=== PATIENT | female | born 1945 | race Caucasian/White ===

== ENCOUNTER 2021-07-08 11:58 | Observation (INO) | payer MEDICARE, OTHER, SELFPAY ==
[2021-07-08] VITALS (8 sets, daily range): BP systolic 110–157; BP diastolic 58–90; PULSE 83–97; RESP 14–21; TEMP 36.4–37.1; O2SAT 96–100; BMI 23.8; BMI 21.3
--- NOTE | 2021-07-08 12:19 | EDS_ITS ---
HPI History of Present Illness Chief Complaint: Seizure Informant: patient and EMS Onset/Context/Timing Onset: Today Context: Sudden Onset Timing: Intermittent Quality: Tonic-clonic Location: Generalized Worsened by: Nothing Relieved by: Nothing Narrative Narrative: Patient presents with a seizure that occurred today. Patient was having a sleep study done when she developed a generalized seizure. Patient was postictal on EMS arrival. Patient started to become more awake and alert during EMS transport. Patient states she has a history of seizures and her last seizure was in February 2019. Patient does not take any seizure medications. Patient denies any recent fevers or chills. Patient is still somewhat confused on the events of today and yesterday. Patient denies any nausea or vomiting. Patient denies any incontinence of urine or stool. Patient denies biting her tongue. [facility] Medical History (Updated 07/08/21 @ 15:[address] Trace White DO) Seizure Sleep apnea Home Medications amlodipine 07/08/21 [History Last Taken Unknown] fluoxetine mg 07/08/21 [History Last Taken Unknown] levothyroxine 88 mcg PO DAILY 07/08/21 [History Last Taken Unknown] Allergy/AdvReac Type Severity Reaction Status Date / Time No Known Allergies Allergy Verified 07/08/21 12:08 Social History Smoking Status: Never smoker ROS ROS ED Constitutional Constitutional ED: Denies chills or fever(s) Eyes Eyes: Denies blurry vision or change in vision ENT ENT ED: Denies rhinorrhea or sore throat Cardiovascular Cardiovascular: Denies chest pain or palpitations Respiratory/Chest Respiratory/Chest: Denies cough or dyspnea Gastrointestinal Gastrointestinal: Denies nausea or vomiting Genitourinary Genitourinary ED: Denies dysuria or hematuria Musculoskeletal Musculoskeletal: Denies back pain or neck pain Integumentary Denies abscess or rash Neurologic Neurologic: Denies headache(s) or weakness Allergic/Immunologic Allergic/Immunologic ED: Denies mouth swelling or urticaria EXAM Physical Exam Const Vital Signs: 07/08/21 11:58 07/08/21 13:20 07/08/21 14:44 Temperature 97.5 F L Temperature Source Oral Pulse Rate 97 93 92 Respiratory Rate 21 H 18 14 Blood Pressure 149/85 H 110/90 H 157/80 H Blood Pressure Mean 106 96 105 Pulse Ox 96 100 97 Oxygen Delivery Method Room Air Room Air Room Air Positive well nourished and well developed General Appearance ED: well developed HEENT Reports moist mucous membranes Neck supple and no JVD Resp normal respiratory effort and clear to auscultation bilaterally Cardio regular rate, regular rhythm and no murmurs GI normal to inspection, nondistended, normoactive bowel sounds and non-tender Palpation: soft Extremity normal to inspection General Extremety ED: Negative for edema or tenderness General Extremity: Negative for edema Neuro CN's II-XII intact bilaterally and no sensory deficits noted Sensorium / Orientation: alert and orientation impaired Motor Exam: strength 5/5 throughout Psych mental status grossly normal Skin no rashes or lesions noted MDM MDM MDM Narrative Medical decision making narrative: CT scan of the brain was obtained. There is no acute intracranial abnormality. This was interpreted by the radiologist and reviewed by myself. CBC was essentially within normal limits. Comprehensive metabolic profile was normal. Urinalysis does not show any evidence of urinary tract infection. Patient had no further seizure activity here in the emergency department. Patient is still confused and does not know the year. She knows that it is June and thinks it is the . Patient states she cannot tolerate any seizure medications. Patient states that is the reason she is not on any antiepileptics. Case was discussed with the hospitalist since she is still confused on the month and the year. He will admit the patient as long as the patient is okay with seeing a teleneurologist. Patient is agreeable with this. Patient was complaining of cramping in her left leg. Patient was given a dose of Valium for this. Patient will be admitted to the hospital. Patient understands and is agreeable with the plan. All questions were answered. Lab Data Attestation: I reviewed the patient's lab results. Labs: Laboratory Results - last 24 hr 07/08/21 07/08/21 07/08/21 12:39 12:39 14:55 WBC 3.7 L RBC 4.65 Hgb 14.4 Hct 42.1 MCV 90.5 MCH 31.0 MCHC 34.2 RDW Std Deviation 46.2 H RDW Coeff of [place] 13.8 Plt Count 204 MPV 10.6 Immature Gran % (Auto) 0.500 Neut % (Auto) 67.9 Lymph % (Auto) 20.0 Rich % (Auto) 10.0 Eos % (Auto) 0.5 Baso % (Auto) 1.1 H Absolute Neuts (auto) 2.5 Absolute Lymphs (auto) 0.74 L Nucleated RBC % 0 Sodium 136 Potassium 3.9 Chloride 100 Carbon Dioxide 29.0 Anion Gap 7 BUN 16 Creatinine 0.72 Estim Creat Clear Calc 46.20 Est GFR (MDRD) Af Amer 101 Est GFR (MDRD) Non-Af 84 BUN/Creatinine Ratio 22.2 H Glucose 122 H Calcium 9.7 Total Bilirubin 0.40 AST 35 ALT 35 Alkaline Phosphatase 77 Total Protein 7.5 Albumin 4.1 Globulin 3.4 Albumin/Globulin Ratio 1.2 Urine Color Yellow Urine Clarity Sl. Cloudy Urine pH 7.0 Ur Specific [place] 1.010 Urine Protein 15 H Urine Glucose (UA) Normal Urine Ketones 15 H Urine Occult Blood Negative Urine Nitrite Negative Urine Bilirubin Negative Urine Urobilinogen Normal Ur Leukocyte Esterase Negative Urine RBC 0 SEEN Urine WBC 0 SEEN Ur Squamous Epith Cells 0-5 SEEN Urine Bacteria 0 SEEN Urine Mucus 0 SEEN Radiography Diagnostic Testing: Clinical Impression(s) from Imaging Studies Brain CT 07/08/21 13:10 IMPRESSION: Chronic involutional changes of the brain. Electronically Signed: Manuel Keenan MD at 13:28 EDT , Discharge Plan Dx/Rx/DC Orders Clinical Impression: Altered mental status, unspecified, Seizure Disposition Disposition: Acute Care Hospital [facility]
[2021-07-08 12:50] LABS: Absolute Lymphocyte Count 0.74 X10^3/uL (0.83-4.51); Absolute Neutrophil Count 2.5 X10^3/uL (2.0-7.7); Basophil# 0.04 X10^3/uL; Basophil% 1.1 % (0-1); Eosinophil# 0.02 X10^3/uL; Eosinophils% 0.5 % (0-5); Hematocrit 42.1 % (37-47); Hemoglobin 14.4 g/dL (12.0-15.0); Lymphocyte # 0.74 X10^3/ul (0.83-4.51); Mean Corp Hgb Conc 34.2 g/dL (32-36); Mean Corpuscular Volume 90.5 fL (81-99); Mean Platelet Vol. 10.6 fl (6.2-12.0); Monocyte# 0.37 X10^3/uL; NRBC Flagged by Analyzer 0 % (0-5); Neutrophil # 2.51 X10^3/uL (2.7-7.7); Neutrophil % 67.9 % (47-70); Platelet Count 204 K/mm3 (150-450); RBC Distribution Width CV 13.8 % (11.6-14.6); RBC Distribution Width SD 46.2 fl (35.1-43.9); Red Blood Count 4.65 M/mm3 (4.2-5.4); White Blood Count 3.7 K/mm3 (4.4-11.0)
[2021-07-08 13:06] LABS: ALB/GLOB Ratio 1.2 RATIO (0.9-2.4); AST(SGOT) 35 U/L (15-37); Alanine Aminotransfer ALT/SGPT 35 U/L (13-56); Albumin, Serum 4.1 g/dL (3.2-5.0); Alkaline Phosphatase 77 U/L (45-117); Anion Gap 7 (5-15); BUN 16 mg/dL (7-18); BUN/Creat Ratio 22.2 RATIO (10-20); Calcium,Total 9.7 mg/dL (8.5-10.1); Chloride 100 mmol/L (98-107); Creatinine, Serum 0.72 mg/dL (0.55-1.02); EST Glomerular Filtration Rate 84 mL/min (>60); Est Glom Filt Rate - Afr Amer 101 mL/min (>60); Globulin 3.4 g/dL (2.2-4.2); Glucose 122 mg/dL (74-106); Potassium 3.9 mmol/L (3.5-5.1); Protein, Total 7.5 g/dL (6.4-8.2); Sodium Level 136 mmol/L (136-145)
--- NOTE | 2021-07-08 13:10 | CT_ITS ---
STUDY: CT BRAIN WITHOUT CONTRAST REASON FOR EXAM: Female, 76 years old. Seizure RADIATION DOSAGE (If Supplied By Facility): CTDIvol = ( 47.06 ) mGy, DLP = ( 855.03 ) mGycm TECHNIQUE: Transaxial CT imaging of the brain was performed without administration of intravenous contrast material. Individualized dose optimization techniques were used for this CT. COMPARISON: No relevant priors. FINDINGS: Normal soft tissue structures. Normal calvarium. There is mild cerebral atrophy with widening of the extra-axial spaces and ventricular dilatation. There are areas of decreased attenuation within the white matter tracts of the supratentorial brain, consistent with microvascular disease changes. Normal basal ganglia and thalami. Normal brainstem. Normal cerebellum. There is no intracranial hemorrhage. There are no findings of an acute ischemic infarction. Atherosclerotic calcific plaques of the vertebral artery. Normal visualized paranasal sinuses. CT/Brain/Head without Contrast IMPRESSION: Chronic involutional changes of the brain. Electronically Signed: Manuel Keenan MD at 13:28 EDT ,
[2021-07-08 15:03] LABS: Bacteria 0 SEEN /hpf (None Seen); Mucous, Urine 0 SEEN /hpf (<or=2+); Red Blood Cells-Urine 0 SEEN /hpf (0-5); White Blood Cells 0 SEEN /hpf (0-5)
[2021-07-08 15:07] LABS: Color, Urine Yellow (Yellow); Glucose, Dipstick Normal (Normal); Ketone-Dipstick 15 mg/dl (Negative); Leukocyte Esterase-Dipstick Negative /ul (Negative); Nitrite-Dipstick Negative (Negative); Occult Blood-Urine Negative /ul (Negative); Protein-Dipstick 15 mg/dl (Negative); Urine Bilirubin Dipstick Negative (Negative); Urine Clarity Sl. Cloudy (Clear); Urine Urobilinogen Normal (Normal)
[2021-07-08 15:18] LABS: Squamous Epithelial Cells - UA 0-5 SEEN /hpf (5-10)
--- NOTE | 2021-07-08 16:46 | HP.PCM.HOS_ITS ---
Documented by User: Susana Herrera NP, [employer] INTEGRATOR-C 07/08/21 17:21 HPI - General General Date of Admission: 07/08/21 HPI Narrative MITCHELL HODGES, is a 76 F who presents to the emergency room due to seizure. Patient states she was at Dr. Gallardo, pulmonary office today for an appointment when she had a seizure. She states prior to today, she did not have a seizure for a few years. She reports a history of grand mal seizures. She states she has been on seizure medications in the past however they made her so fatigued that she had difficulty getting out of bed. She denies recent illness. Denies fever, chills. She reports a history of hypothyroidism, sleep apnea on CPAP and seizures. [facility] Medical History Hypothyroidism Migraines Seizure Sleep apnea Home Medications levothyroxine 88 mcg PO DAILY 07/08/21 [History Last Taken 07/08/21] Allergy/AdvReac Type Severity Reaction Status Date / Time No Known Allergies Allergy Verified 07/08/21 12:08 Family History (Updated 07/08/21 @ 16:52 by Susana Herrera NP, [employer] INTEGRATOR-C) Father No cardiac disease Mother No cardiac disease Surgical History (Updated 07/08/21 @ 16:52 by Susana Herrera NP, [employer] INTEGRATOR-C) H/O foot surgery Social History (Updated 07/08/21 @ 16:52 by Susana Herrera NP, [employer] INTEGRATOR-C) household members: none Smoking Status: Never smoker alcohol intake: never substance use type: does not use ROS Constitutional Constitutional: Denies change in weight, chills, fatigue, fever(s) or weakness Cardiovascular Cardiovascular: Denies chest pain, edema, lightheadedness, palpitations or syncope Respiratory/Chest Respiratory/Chest: Denies cough, dyspnea, productive cough, shortness of breath at rest, shortness of breath with exertion or wheezing Gastrointestinal Gastrointestinal: Denies abdominal pain, constipation, diarrhea, nausea or vomiting Genitourinary Genitourinary: Denies burning urination, difficulty urinating, dysuria, hematuria, urinary frequency, urinary incontinence or urinary urgency Musculoskeletal Musculoskeletal: Denies back pain, joint pain or muscle weakness Integumentary Integumentary: Denies erythema, lesions, rash or wounds Neurologic Neurologic: Reports seizures; Denies abnormal speech, confusion, dizziness, focal weakness, numbness, paresthesias or syncope Psychiatric Psychiatric: Denies anxiety or depression Hematologic/Lymphatic Hematologic/Lymphatic: Denies anemia, easy bleeding or easy bruising Allergic/Immunologic Allergic/Immunologic: Denies hives or asthma Vital Signs Vital Signs Vital Signs: 07/08/21 11:58 07/08/21 13:20 07/08/21 14:44 Temperature 97.5 F L Temperature Source Oral Pulse Rate 97 93 92 Respiratory Rate 21 H 18 14 Blood Pressure 149/85 H 110/90 H 157/80 H Blood Pressure Mean 106 96 105 Pulse Ox 96 100 97 Oxygen Delivery Method Room Air Room Air Room Air 07/08/21 16:08 Temperature 98.3 F Temperature Source Temporal Pulse Rate 94 Respiratory Rate 14 Blood Pressure 154/74 H Blood Pressure Mean 100 Pulse Ox 98 Oxygen Delivery Method Room Air Weight Weight: 147 lb 4.301 oz Body Mass Index (BMI) 23.8 Physical Exam Const alert, oriented x3 and no apparent distress Orientation / Consciousness: awake, oriented to person, oriented to place and oriented to time HEENT normocephalic and moist oral mucous membranes Eyes PERRL, EOMs intact bilaterally and conjunctivae normal Neck no lymphadenopathy Resp normal respiratory effort and clear to auscultation bilaterally Cardio regular rate, regular rhythm and no murmurs Peripheral Pulses: pulses 2+ throughout GI normal to inspection, nondistended, normoactive bowel sounds, non-tender and non-distended Extremity normal to inspection Skin no rashes or lesions noted Lesions: no lesions Rashes: no rashes Trauma: no lacerations or abrasions Neuro CN's II-XII intact bilaterally, no focal motor deficits, no sensory deficits noted and deep tendon reflexes 2+ bilaterally Psych mental status grossly normal and affect normal Results Lab / Micro Data Result Diagrams: 07/08/21 12:39 07/08/21 12:39 Labs: Laboratory Results - last 24 hr 07/08/21 12:39: WBC 3.7 L, RBC 4.65, Hgb 14.4, Hct 42.1, MCV 90.5, MCH 31.0, MCHC 34.2, RDW Std Deviation 46.2 H, RDW Coeff of [place] 13.8, Plt Count 204, MPV 10.6, Immature Gran % (Auto) 0.500, Neut % (Auto) 67.9, Lymph % (Auto) 20.0, [place] % (Auto) 10.0, Eos % (Auto) 0.5, Baso % (Auto) 1.1 H, Absolute Neuts (auto) 2.5, Absolute Lymphs (auto) 0.74 L, Nucleated RBC % 0 07/08/21 12:39: Sodium 136, Potassium 3.9, Chloride 100, Carbon Dioxide 29.0, Anion Gap 7, BUN 16, Creatinine 0.72, Estim Creat Clear Calc 46.20, Est GFR (MDRD) Af Amer 101, Est GFR (MDRD) Non-Af 84, BUN/Creatinine Ratio 22.2 H, Glucose 122 H, Calcium 9.7, Total Bilirubin 0.40, AST 35, ALT 35, Alkaline Phosphatase 77, Total Protein 7.5, Albumin 4.1, Globulin 3.4, Albumin/Globulin Ratio 1.2 07/08/21 14:55: Urine Color Yellow, Urine Clarity Sl. Cloudy, Urine pH 7.0, Ur Specific [place] 1.010, Urine Protein 15 H, Urine Glucose (UA) Normal, Urine Ketones 15 H, Urine Occult Blood Negative, Urine Nitrite Negative, Urine Bilirubin Negative, Urine Urobilinogen Normal, Ur Leukocyte Esterase Negative, Urine RBC 0 SEEN, Urine WBC 0 SEEN, Ur Squamous Epith Cells 0-5 SEEN, Urine Bacteria 0 SEEN, Urine Mucus 0 SEEN Radiology Impression Brain CT 07/08/21 13:10 IMPRESSION: Chronic involutional changes of the brain. Electronically Signed: Manuel Keenan MD at 13:28 EDT , Assessment & Plan Assessment/Plan (1) Seizure: PLAN: 1. Uncontrolled seizure- has not been on medication in the past due to side effects. Obtain EEG. Neurology consult. Seizure precautions. 2. CAMILA- on cpap. Follows with Dr. Gallardo. 3. Hypothyroidism- continue Synthroid regimen. DVT prophylaxis- Lovenox sc This patient was seen by BLANCA Martin under the supervision of Dr. Nunu montero. Time spent examining patient, reviewing data and subsequent management of care: 16 Minutes Documented by User: Dr. Raul Deluna MD 07/08/21 19:29 HPI - General General Date of Admission: 07/08/21 [facility] Medical History Hypothyroidism Migraines Seizure Sleep apnea Home Medications levothyroxine 88 mcg PO DAILY 07/08/21 [History Last Taken 07/08/21] Allergy/AdvReac Type Severity Reaction Status Date / Time No Known Allergies Allergy Verified 07/08/21 12:08 Family History (Updated 07/08/21 @ 16:52 by Susana Herrera NP, [employer] INTEGRATOR-C) Father No cardiac disease Mother No cardiac disease Surgical History (Updated 07/08/21 @ 16:52 by Susana Herrera NP, [employer] INTEGRATOR-C) H/O foot surgery Social History (Updated 07/08/21 @ 16:52 by Susana Herrera NP, [employer] INTEGRATOR-C) household members: none Smoking Status: Never smoker alcohol intake: never substance use type: does not use Results Lab / Micro Data Result Diagrams: 07/08/21 12:39 07/08/21 12:39 Charges/Coding Addendum Addendum: Dr. Deluna: I personally reviewed the chart and examined the patient, and agree with the above findings. 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 She had seizures in 2019 and was initially placed on medications for these however she states that she tried 4 different medications, some could also have been used for bipolar disorder, but she does not remember the names, and they all caused her to be nonfunctional and since then has been off of medications. She is very concerned about trying any new medications, the meantime will obtain an EEG which she says has never shown anything in the past and will have her follow-up with neurology once the EEG is completed. I did discuss with her the potential need for medication she is extremely hesitant based on the previous side effects, and I also discussed with her the fact that she cannot drive having just had a seizure. She is aware of this requirement and does have an outp atient neurologist that she had seen previously for her previous seizures that she can follow-up with. Clinical time spent in all aspects of patient care: 37 minutes Visit Charges OBSV E&M: 07324 Initial observation care L2
[2021-07-09 00:05] VITALS: O2SAT 96
[2021-07-09 02:09] VITALS: BP 150/66; PULSE 68; RESP 14; TEMP 37.2; O2SAT 96
[2021-07-09 04:00] VITALS: PULSE 62
[2021-07-09 06:39] LABS: Absolute Lymphocyte Count 1.01 X10^3/uL (0.83-4.51); Absolute Neutrophil Count 2.7 X10^3/uL (2.0-7.7); Basophil# 0.04 X10^3/uL; Eosinophil# 0.05 X10^3/uL; Eosinophils% 1.2 % (0-5); Hematocrit 38.8 % (37-47); Hemoglobin 13.3 g/dL (12.0-15.0); Lymphocyte # 1.01 X10^3/ul (0.83-4.51); Mean Corp Hgb Conc 34.3 g/dL (32-36); Mean Corpuscular Volume 87.4 fL (81-99); Mean Platelet Vol. 10.8 fl (6.2-12.0); Monocyte# 0.38 X10^3/uL; NRBC Flagged by Analyzer 0 % (0-5); Neutrophil # 2.71 X10^3/uL (2.7-7.7); Neutrophil % 64.6 % (47-70); Platelet Count 196 K/mm3 (150-450); RBC Distribution Width CV 13.7 % (11.6-14.6); Red Blood Count 4.44 M/mm3 (4.2-5.4); White Blood Count 4.2 K/mm3 (4.4-11.0)
[2021-07-09] MEDS: Levothyroxine 88 MCG Tablet PO (06:51)
[2021-07-09 07:05] LABS: Anion Gap 6 (5-15); BUN 16 mg/dL (7-18); BUN/Creat Ratio 29.1 RATIO (10-20); Calcium,Total 8.6 mg/dL (8.5-10.1); Chloride 101 mmol/L (98-107); Creatinine, Serum 0.55 mg/dL (0.55-1.02); EST Glomerular Filtration Rate 115 mL/min (>60); Est Glom Filt Rate - Afr Amer 139 mL/min (>60); Glucose 90 mg/dL (74-106); Potassium 3.5 mmol/L (3.5-5.1); Sodium Level 134 mmol/L (136-145)
[2021-07-09 07:08] VITALS: PULSE 65
--- NOTE | 2021-07-09 08:02 | TELEMED_ITS ---
[facility] has confirmed receipt of a request for visit. This document confirms receipt of the order initiating the consult. To find the results of the consultation, please view the patient's reports for the scanned Telemed Consult.
[2021-07-09 08:40] VITALS: BP 142/74; PULSE 69; RESP 16; TEMP 37.1; O2SAT 97
--- NOTE | 2021-07-09 13:03 | PCM.DC ---
Discharge Instructions Diet Discharge Diet: No restrictions Activity Discharge Activity: May Not Drive (Until cleared by neurology as outpatient) Dressing / Incision Call your doctor if you observe: Inability to urinate, Inability to have a bowel movement, Dizziness and - (Recurrent seizure) Follow Up Care Test Results: Test results from this visit will be discussed in further detail at your follow-up appointment, if applicable. Discharge Plan Admission Admit Date/Time: 07/08/21 15:43 Primary Reason for Your Visit: Uncontrolled seizure Attending Provider: Zoila Zarco Primary Care Provider: Marla Lowe Discharge Orders/Prescriptions Prescriptions: Continued levothyroxine 88 mcg Tablet 88 mcg PO DAILY RF: 0 Referrals / Follow Up: [facility] [Other] - In 1 Week Marla Lowe MD [Primary Care Provider] - In 1 Week Disposition Disposition (needs filled in before D/C Order can be placed): Home, Self Care
[2021-07-09 13:05] VITALS: BP 140/80; PULSE 70; RESP 14; TEMP 36.9; O2SAT 100
--- NOTE | 2021-07-09 13:06 | DS.PCM_ITS ---
Documented by User: Susana Herrera NP, PRINTING EQUIPMENT MECHANIC APPRENTICE-C 07/09/21 13:13 Providers Date of Admission: 07/08/21 Date of Discharge: 07/09/21 Primary Care Physician: Dr. Marla Lowe MD Reason For Visit: SEIZURE Diagnosis Discharge Diagnosis (1) Seizure: Status: Acute Code(s): R56.9 - Unspecified convulsions Medications at Discharge Home Medications levothyroxine 88 mcg PO DAILY 07/08/21 Hospital Course Operations None Procedures Electroencephalogram Summary of Care Provided Hospital Course: Patient is a 76-year-old female admitted 07/08/2021 due to seizure. 1. Uncontrolled seizure- has not been on medication in the past due to side effects. EEG obtained which per neurology no evidence of active seizure activity. [facility] neurology consulted. Due to prior side effects, patient is not willing to again try antiepileptic regimen. Neurology lifestyle modifications discussed with patient lifestyle modifications and follow-up with primary neurologist. Patient instructed that she may not drive until cleared by neurology as outpatient. 2. CAMILA- on cpap. Follows with Dr. Gallardo. 3. Hypothyroidism- continue Synthroid regimen. 4. History of ocular migraines-follow with neurology 5. History of alcohol abuse-sober for 23 years. Physical Exam Const alert, oriented x3 and no apparent distress Orientation / Consciousness: awake, oriented to person, oriented to place and oriented to time HEENT normocephalic and moist oral mucous membranes Eyes PERRL, EOMs intact bilaterally and conjunctivae normal Neck no lymphadenopathy Resp normal respiratory effort and clear to auscultation bilaterally Cardio regular rate, regular rhythm and no murmurs Peripheral Pulses: pulses 2+ throughout GI normal to inspection, nondistended, normoactive bowel sounds, non-tender and non-distended Extremity normal to inspection Skin no rashes or lesions noted Lesions: no lesions Rashes: no rashes Trauma: no lacerations or abrasions Neuro CN's II-XII intact bilaterally, no focal motor deficits, no sensory deficits noted and deep tendon reflexes 2+ bilaterally Psych mental status grossly normal and affect normal Patient seen and examined prior to discharge. Physical assessment as noted above. Patient is stable for discharge with follow up recommendations as noted above. This patient was seen by BLANCA Martin under the supervision of Dr. Zarco. Weight / BMI Weight Weight: 132 lb 7.965 oz Body Mass Index (BMI) 21.3 ABG / Lab / Microbiology Data Result Diagrams: 07/09/21 06:00 07/09/21 06:00 Laboratory: Laboratory Results - last 24 hr 07/08/21 12:39: Sodium 136, Potassium 3.9, Chloride 100, Carbon Dioxide 29.0, Anion Gap 7, BUN 16, Creatinine 0.72, Estim Creat Clear Calc 46.20, Est GFR (MDRD) Af Amer 101, Est GFR (MDRD) Non-Af 84, BUN/Creatinine Ratio 22.2 H, Glucose 122 H, Calcium 9.7, Total Bilirubin 0.40, AST 35, ALT 35, Alkaline Phosphatase 77, Total Protein 7.5, Albumin 4.1, Globulin 3.4, Albumin/Globulin Ratio 1.2 07/08/21 14:55: Urine Color Yellow, Urine Clarity Sl. Cloudy, Urine pH 7.0, Ur Specific [place] 1.010, Urine Protein 15 H, Urine Glucose (UA) Normal, Urine Ketones 15 H, Urine Occult Blood Negative, Urine Nitrite Negative, Urine Bilirubin Negative, Urine Urobilinogen Normal, Ur Leukocyte Esterase Negative, Urine RBC 0 SEEN, Urine WBC 0 SEEN, Ur Squamous Epith Cells 0-5 SEEN, Urine Bacteria 0 SEEN, Urine Mucus 0 SEEN 07/09/21 06:00: WBC 4.2 L, RBC 4.44, Hgb 13.3, Hct 38.8, MCV 87.4, MCH 30.0, MCHC 34.3, RDW Std Deviation 44.0 H, RDW Coeff of [place] 13.7, Plt Count 196, MPV 10.8, Immature Gran % (Auto) 0.200, Neut % (Auto) 64.6, Lymph % (Auto) 24.0, [place] % (Auto) 9.0, Eos % (Auto) 1.2, Baso % (Auto) 1.0, Absolute Neuts (auto) 2.7, Absolute Lymphs (auto) 1.01, Nucleated RBC % 0 07/09/21 06:00: Sodium 134 L, Potassium 3.5, Chloride 101, Carbon Dioxide 27.0, Anion Gap 6, BUN 16, Creatinine 0.55, Estim Creat Clear Calc 46.20, Est GFR (MDRD) Af Amer 139, Est GFR (MDRD) Non-Af 115, BUN/Creatinine Ratio 29.1 H, Glucose 90, Calcium 8.6 Radiography Diagnostic Testing: Radiology Impression Brain CT 07/08/21 13:10 IMPRESSION: Chronic involutional changes of the brain. Electronically Signed: Manuel Keenan MD at 13:28 EDT , D/C Instructions Discharge Diet: No restrictions Call your doctor if you observe: Inability to urinate, Inability to have a bowel movement, Dizziness and - (Recurrent seizure) Meaningful Use Info Meaningful Use Diagnoses (Choose all that apply): None applicable Discharge Plan Admission Admit Date/Time: 07/08/21 15:43 Primary Reason for Your Visit: Uncontrolled seizure Attending Provider: Zoila Zarco Primary Care Provider: Marla Lowe Discharge Orders/Prescriptions Prescriptions: Continued levothyroxine 88 mcg Tablet 88 mcg PO DAILY RF: 0 Referrals / Follow Up: [facility] [Other] - In 1 Week Marla Lowe MD [Primary Care Provider] - In 1 Week Disposition Disposition (needs filled in before D/C Order can be placed): Home, Self Care Documented by User: Dr. Zoila Zarco DO 07/09/21 14:03 Providers Date of Admission: 07/08/21 Reason For Visit: SEIZURE Medications at Discharge Home Medications levothyroxine 88 mcg PO DAILY 07/08/21 Hospital Course Operations None Procedures Electroencephalogram Summary of Care Provided Minutes Spent on Discharge: 27 Hospital Course: Mrs. Garcia is a 76-year-old female who presented to emergency department at [facility] on 07/08/2021 secondary to seizure. The patient was at Dr. Gallardo's office for a pulmonary appointment at which time she had a generalized tonic-clonic seizure. The patient does have a history of seizures with her most recent episode being approximately 2 to 3 years ago. She states she has been on multiple seizure medications however she had marked side effects from them and the most recent one she was unable to afford because it was $500 per month. She is familiar with the term Keppra and states that this made her very fatigued. I did discuss Vimpat is being another possibility and she states that the one that was very expensive for her. She does follow with an outpatient neurologist in [place] and has been following a ketogenic diet which she states has been helpful with regards to her seizure disorder. She states this past weekend she went off of her diet because her son was in town and she lived it up. She was admitted for monitoring and placed on seizure precautions. She had no further events. An EEG was performed and was found to be normal with no focal or epileptiform activity noted. She was evaluated by neurology. Unfortunately she is unwilling to try any AED secondary to marked side effects previously. Neurology did discuss lifestyle modifications and recommended follow-up with her primary neurologist. She was instructed that she may not drive until she is cleared by her primary neurologist as an outpatient. She was discharged home in stable condition on 07/09/2021. Discharge diagnoses: Seizure disorder CAMILA Hypothyroidism History of ocular migraines History of alcohol abuse Physical Exam Const alert, oriented x3, no apparent distress, average body habitus, healthy appearing and well nourished General Appearance: cooperative, comfortable, well kempt and well developed Orientation / Consciousness: awake Exam Limitations: no limitations HEENT normocephalic, head/scalp atraumatic, hearing grossly normal bilaterally and moist oral mucous membranes Eyes PERRL, EOMs intact bilaterally and conjunctivae normal Eyes Narrative: No scleral icterus Resp normal respiratory effort, no retractions, no use of accessory muscles and clear to auscultation bilaterally Auscultation: Negative for crackles, rales, rhonchi or wheezes Cardio regular rate, regular rhythm, S1 normal heart sound, S2 normal heart sound, no murmurs, no rub, no gallops, no clicks and no JVD GI normal to inspection, nondistended, normoactive bowel sounds, soft to palpation, non-tender and non-distended Extremity no clubbing, cyanosis or edema Neuro oriented x3, CN's II-XII intact bilaterally, moves all extremities and no focal motor deficits Sensorium / Orientation: awake and alert Speech: speech normal Motor Exam: strength 5/5 throughout Psych affect normal ABG / Lab / Microbiology Data Result Diagrams: 07/09/21 06:00 07/09/21 06:00 Discharge Plan Admission Admit Date/Time: 07/08/21 15:43 Primary Reason for Your Visit: Uncontrolled seizure Attending Provider: Zoila Zarco Primary Care Provider: Marla Lowe Discharge Orders/Prescriptions Prescriptions: Continued levothyroxine 88 mcg Tablet 88 mcg PO DAILY RF: 0 Referrals / Follow Up: [facility] [Other] - In 1 Week Marla Lowe MD [Primary Care Provider] - In 1 Week Disposition Disposition (needs filled in before D/C Order can be placed): Home, Self Care Charges/Coding Visit Charges Inpatient E&M: 18743 Disch Hosp
--- NOTE | 2021-07-09 13:42 | CHAPLAIN ---
Type of Pastoral Visit _x__ Initial Visit ___ Follow-up Visit ___ On-call Visit ___ General Patient Visit ___ Spiritual Assessment ___ Family Conference ___ Bereavement ___ Rapid Response ___ Code Blue ___ Other (describe below) Pastoral Care Referral From _x__ Patient ___ Family ___ Nurse ___ Physician ___ Director Of Marketing [employer] ___ Forest Science Professor ___ Other (describe below) Sacrament/Intervention _x__ Active listening ___ Anointing ___ Synagogue ___ Bereavement ___ Communion _x__ Beth exploration ___ ___ Life review _x__ Prayer ___ Reconciliation ___ Sacrament of Sick _x__ Supportive presence ___ Wedding ___ Other (describe below) Pastoral Comments patient is waiting for more evaluation and then hopes to go home; pt is welcoming of spiritual care and invites prayer and presence at this time
== END 2021-07-09 13:05 | disposition home or self-care (01) ==
LOC: ED 15:44 → PCU 16:12
PROVIDERS: Admitting Provider Family Medicine; Emergency Provider Emergency Medicine; PCP Family Medicine; Visit Provider Internal Medicine
DX: G40.909 Epilepsy, unspecified, not intractable, without status epilepticus (principal); E03.9 Hypothyroidism, unspecified; G47.33 Obstructive sleep apnea (adult) (pediatric); Z79.899 Other long term (current) drug therapy; I10 Essential (primary) hypertension; G43.909 Migraine, unspecified, not intractable, without status migrainosus
CPT/HCPCS: 36415; 70450; 80048; 80053; 81001; 85025; 95819; 97161; 97166; 97802; 99218; 99285; G0378